=== PATIENT | female | born 1955 | race Asian ===

== ENCOUNTER 2020-08-03 13:07 | Outpatient (CLI) | payer OTHER | END 2020-08-03 13:08 | disposition home or self-care (01) | LOC: CSHMRI 13:07 | PROVIDERS: ATTEND Neurological Surgery | DX: M54.5 Low back pain (principal); R29.898 Other symptoms and signs involving the musculoskeletal system; M47.816 Spondylosis without myelopathy or radiculopathy, lumbar region | CPT/HCPCS: 72148 ==